=== PATIENT | female | born 1980 | race Caucasian/White ===

== ENCOUNTER 2018-10-11 07:30 | Inpatient (IN) | payer BC ==
[~2018-10-11] VITALS: Ht 165.1 cm; Wt 83.9 kg
[~2018-10-11 07:30] MED LIST: ASPI-1077 PO; PREN-136 PO
[2018-10-11] MEDS ORDERED: NORG1TAB68 PO (09:09)
[2018-10-11] MEDS ORDERED: LR 1,000 ML IV SCH (11:26)
[2018-10-11] MEDS ORDERED: HYDROmorphone 2 MG/ML VIAL IVP PRN ×3 (11:30)
[2018-10-11] MEDS ORDERED: MEPERIDINE HCL/PF 25 MG/ML DISP.SYRIN IVP PRN (11:30)
[2018-10-11] MEDS ORDERED: ONDANSETRON HCL 4 MG/2 ML VIAL IVP PRN (12:30)
[2018-10-11] MEDS ORDERED: HYDROcodone/ACETAMIN 5-325 MG TAB (NORCO/ VICODIN) PO PRN (12:30)
[2018-10-11 13:35] VITALS: BP_SYST 129
[2018-10-11] MEDS ORDERED: NORMAL SALINE 5 ML DISP.SYRIN IVF SCH (14:00)
[2018-10-11] MEDS: NORMAL SALINE 5 ML DISP.SYRIN IVF SCH ×2 (14:00→21:34)
[2018-10-11 16:02] VITALS: BP_SYST 130
[2018-10-11 20:00] VITALS: BP_SYST 137
[2018-10-11] MEDS: DEXAMETHASONE SOD PHOSPHATE 4 MG/ML VIAL IVP SCH (21:34)
[2018-10-12 01:32] VITALS: BP_SYST 137
[2018-10-12] MEDS: DEXAMETHASONE SOD PHOSPHATE 4 MG/ML VIAL IVP SCH (05:13)
[2018-10-12] MEDS: NORMAL SALINE 5 ML DISP.SYRIN IVF SCH (05:14)
[2018-10-12 08:00] VITALS: BP_SYST 139
[2018-10-12 08:39] VITALS: BP_SYST 139
[2018-10-12] MEDS ORDERED: fentaNYL CITRATE 250 MCG/5 ML AMP IV ONE (10:10)
[2018-10-12] MEDS ORDERED: THROMBIN (BOVINE) 5000 UNITS/ VIAL TP ONE (10:10)
[2018-10-12] MEDS ORDERED: MIDAZOLAM HCL 5 MG/5 ML VIAL IVP ONE ×2 (10:10)
[2018-10-12] MEDS ORDERED: BACITRACIN ZINC 15 GM TOPICAL OINTMENT TP ONE (10:10)
[2018-10-12] MEDS ORDERED: NS IRRIG SOLN 1000 ML IR ONE (10:10)
[2018-10-12] MEDS ORDERED: KETOROLAC TROMETHAMINE 30 MG VIAL IVP ONE (10:10)
[2018-10-12] MEDS ORDERED: PROPOFOL 200MG/ 20ML VIAL (DIPRIVAN) IV ONE (10:10)
[2018-10-12] MEDS ORDERED: LIDOCAINE/EPI 1% 1:100000 20 ML VIAL INJ ONE (10:10)
[2018-10-12] MEDS ORDERED: SEVOFLURANE 15 MIN GAS INH ONE (10:10)
[2018-10-12] MEDS ORDERED: ONDANSETRON HCL 4 MG/2 ML VIAL IVP ONE (10:10)
[2018-10-12] MEDS ORDERED: SUCCINYLCHOLINE CHLORIDE 20 MG/ML(QUELICIN) IVP ONE (10:10)
[2018-10-12] MEDS ORDERED: fentaNYL CITRATE/PF 100 MCG/2 ML AMP IVP ONE (10:10)
[2018-10-12] MEDS ORDERED: LR 1,000 ML IV.SOLN IV ONE (10:10)
[2018-10-12] MEDS ORDERED: CEFAZOLIN 2 GM IVPB PREMIX 50 ML IV ONE (10:10)
== END 2018-10-12 09:40 | disposition home or self-care (01) | DRG 627 ==
LOC: SMU 08:08
PROVIDERS: ADMIT Otolaryngology Plastic Surgery within the Head & Neck; ATTEND Otolaryngology Plastic Surgery within the Head & Neck
PROC: 0GTJ0ZZ Resection of Thyroid Gland Isthmus, Open Approach (ICD-10-PCS; principal; 2018-10-12)
PROC: 0GTH0ZZ Resection of Right Thyroid Gland Lobe, Open Approach (ICD-10-PCS; 2018-10-12)
PROC: 4A11X4G Monitoring of Peripheral Nervous Electrical Activity, Intraoperative, External Approach (ICD-10-PCS; 2018-10-12)
DX: E07.89 Other specified disorders of thyroid (principal)
CPT/HCPCS: 87081; 88307; 88341; 88342; 88361; C1782; J0330; J0690; J1100; J1885; J2250; J2405; J2704; J3010; J7120